=== PATIENT | female | born 2000 | race Hispanic/Latino ===

== ENCOUNTER 2024-07-14 15:51 | Emergency (ER) | payer BC, MEDICAID ==
[~2024-07-14] VITALS: Ht 160 cm; Wt 87.1 kg
[2024-07-14 17:30] VITALS: BP 127/73; PULSE 90; RESP 18; TEMP 98.1; O2SAT 97
[2024-07-14] MEDS ORDERED: DIPH-1242 PO (17:38)
[2024-07-14] MEDS ORDERED: PRED20TA3 PO (17:38)
--- NOTE | 2024-07-14 17:38 | ERN ---
General Chief Complaint: Insect Bite Stated Complaint: SPIDER BITE ON LIP, THROATS CLOSING Time Seen by MD: 15:58 Time Seen by Midlevel: 15:58 Source: patient History of Present Illness Initial Comments The patient is a 23-year-old female with no significant past medical history presenting to the ER for evaluation following a spider bite. The patient states she was drinking out of her cup when she fell sting in her lower lip and then realized there was a spider. She noticed immediate swelling of her left lower lip which concerned her. This occurred approximately 2 hours prior to arrival. Denies any other symptoms on arrival. She specifically denies any shortness of breath, tongue swelling, sore throat, or any other symptoms at this time. Allergies: Coded Allergies: No Known Drug Allergies (Verified Allergy, 01/22/12) Home Meds Active Scripts Prednisone (Prednisone) 20 Mg Tablet, 1 TAB PO DAILY for 3 Days, #3 TAB 0 Refills Prov:SANDEE HARE 07/14/24 Diphenhydramine HCl (Benadryl) 25 Mg Cap, 25 MG PO BID for 5 Days, #10 CAP Prov:SANDEE HARE 07/14/24 Past Medical History Past Medical History: No Pertinent History Past Surgical History: Appendectomy Female( History) LMP: June 29, 2024 ROS Dictation CONSTITUTIONAL: Negative except for HPI HEAD/FACE: Negative except for HPI EENT: Negative except for HPI RESPIRATORY: Negative except for HPI GASTROINTESTINAL/ABDOMINAL: Negative except for HPI GENITOURINARY: Negative except for HPI MUSCULOSKELETAL: Negative except for HPI INTEGUMENTARY: Negative except for HPI NEUROLOGICAL/PSYCH: Negative except for HPI HEMATOLOGIC/LYMPHATIC: Negative except for HPI All Systems Negative, Except as noted above. 13 point review of systems assessed and all negative except for above. Physical Exam Physical Exam Dictation Vital Signs reviewed General Appearance: Alert, oriented x 3, no acute distress, well developed, nourished. Head and Face: non-traumatic. Eyes: PERRL, pink conjunctivas, eyelid no trauma, anterior chamber with arcus senilis. Ears: Pinnas intact and no signs of trauma or erythema ear canals clear and no discharge TM no erythema Nose: No discharge, no bleeding. Oropharynx: Mouth normal, tongue pink, mild lower lip swelling pharynx clear,no erythema, tonsils no exudates, no abscesses noted, mucous membrane moist Neck: Supple, non-tender, no thyromegaly, no masses, no JVD, no bruits Breast:Deferred Chest:No tenderness, no crepitus, no paradoxical movement, no retractions Lungs:Clear, well-ventilated, symmetric, no rales, no wheezing, no rhonchi, no stridor, good breath sounds bilaterally Heart: Regular rate, regular rhythm, no murmur, no gallops Vascular: no peripheral edema, Abdomen: Soft, positive bowel sounds, nondistended, no guarding, nontender, no rebound, no masses no hepatomegaly, no splenomegaly, no Ortega's sign, no hernias. Rectal: Deferred Genital: Deferred Neurological: Normal speech, motor function intact, sensory function intact Musculoskeletal: Neck nontender, full range of motion, back nontender, full range of motion, Extremities: nontender, full range of motion Skin: Color pink, dry, no turgor, no rash, no lacerations, no abrasions, no contusions. Lymphatic: Deferred MDM MDM: Differential diagnosis: Acute allergic reaction, insect bite, wound evaluation There are no social concerns with this patient. Prescription drug management Prescriptions will include: Benadryl, Medrol pack Medical management and examination interpretation discussions were had by me with other qualified healthcare professionals as indicated for the patient's care. ED Course Orders Procedure Category Date Status Time Dexamethasone 4mg/Ml PHA 07/14/24 Complete 1ml Vial (Dexametha 17:30 Current Medications Medications (Trade) Dose Ordered Sig/Mable Route PRN Reason Start Time Stop Time Status Last Admin Dose Admin Dexamethasone Sodium Phosphate (dexaMETHasone 4MG/ML 1ML VIAL) 4 mg ONCE ONCE IM 07/14/24 17:30 07/14/24 17:31 DC 07/14/24 17:43 Vital Signs Date Time Temp Pulse Resp B/P (MAP) Pulse Ox O2 Delivery O2 Flow Rate FiO2 07/14/24 17:30 98.1 90 18 127/73 97 Room Air* 0 21 07/14/24 15:59 117 18 132/70 96 Room Air DX & DISP Disposition: Discharge Departure Impression: Primary Impression: Spider bite Condition: Stable Scripts Prednisone (Prednisone) 20 Mg Tablet 1 TAB PO DAILY for 3 Days, #3 TAB 0 Refills Prov: SANDEE HARE 07/14/24 Diphenhydramine HCl (Benadryl) 25 Mg Cap 25 MG PO BID for 5 Days, #10 CAP Prov: SANDEE HARE 07/14/24 Referrals: SELF,REFERRAL (PCP) Time of Disposition: 17:38 I have reviewed the case, and I agree with, Diagnosis and Plan I performed the substantive portion of the visit. I have reviewed and personally made and approve the management plan that is documented in the note by myself or the [facility]. I acknowledge for responsibility for the patient's management plan. SANDEE HARE July 14, 2024 17:38 RAMIN COOLEY DO July 15, 2024 08:05
[2024-07-14] MEDS: dexaMETHasone SOD PHOSPHATE 4 MG/ML 1ML VIAL IM ONE (17:43)
== END 2024-07-14 18:13 | disposition home or self-care (01) ==
LOC: EDH 15:51
DX: T63.301A Toxic effect of unspecified spider venom, accidental (unintentional), initial encounter (principal); Z79.52 Long term (current) use of systemic steroids; Z90.49 Acquired absence of other specified parts of digestive tract; X58.XXXA Exposure to other specified factors, initial encounter; Y92.89 Other specified places as the place of occurrence of the external cause
CPT/HCPCS: 99283; 96372; J1100